=== PATIENT | male | born 1965 | race Caucasian/White ===

== ENCOUNTER 2017-01-25 08:03 | Day surgery (SDC) | payer BC ==
[2017-01-21 15:45] VITALS: BMI 34.7
[~2017-01-25 08:03] MED LIST: LACTATED RINGERS 1,000 ML IV SCH; LIDOCAINE 1% 20 ML VIAL (10MG/ML) FOR IV START INTRADERMA PRN
[2017-01-25 08:51] VITALS: RESP 16; TEMP 98.3
[2017-01-25] MEDS ORDERED: PROPOFOL 10 MG/ML 20 ML VIAL IV ONE (09:36)
[2017-01-25] MEDS ORDERED: LIDOCAINE 1% INJ 10MG/ML (20 ML MDV) ONE (09:36)
--- NOTE | 2017-01-25 09:56 | P.PCN ---
Date of Procedure: 01/25/17 Preoperative Diagnosis: Postoperative Diagnosis: Procedure(s) Performed: BRIEF HISTORY: Patient is a 51-year-old pleasant white male, scheduled for an elective colonoscopy as a part of screening for colorectal neoplasia. PROCEDURE PERFORMED: Colonoscopy with snare polypectomy and biopsy. PREOPERATIVE DIAGNOSIS: Screening for colon cancer. IV sedation per Anesthesia. PROCEDURE: After informed consent was obtained, the patient, was brought into the endoscopy unit. IV sedation was administered by Anesthesia under continuous monitoring. Digital rectal examination was normal. Initially the Olympus CF- 160 flexible video colonoscope was then inserted in the rectum, gradually advanced into the cecum without any difficulty. Careful examination was performed as the scope was gradually being withdrawn. Ileocecal valve and the appendiceal orifice were visualized and appeared normal. Prep was excellent. In the base of the cecum there was a diminutive polyp that was removed by biopsy. In the ascending colon there was a 1 cm polyp removed by snare polypectomy. In the proximal transverse colon there was a 5 mm polyp that was removed by snare polypectomy. Mucosa of the cecum, ascending colon, transverse colon, descending colon, sigmoid colon, and rectum appeared normal. Retroflexion was performed in the rectum and no lesions were seen. The patient tolerated the procedure well. IMPRESSION: Diminutive polyp in the cecum status post removal by biopsy 1 cm ascending colon polyp status post snare polypectomy 5 mm was colon polyp status post snare polypectomy RECOMMENDATIONS: Findings of this examination were discussed with the patient as well as his family. He was advised to follow with the biopsy results. If the biopsy shows a tubular adenoma he can have a repeat colonoscopy in 5 years. Implants: Indications for Procedure: Operative Findings: Description of Procedure:
[2017-01-25 10:19] VITALS: BP 109/72; PULSE 69
== END 2017-01-25 10:48 | disposition home or self-care (01) ==
LOC: ORWHC2ENDO 08:03
PROVIDERS: ATTEND Internal Medicine Gastroenterology
DX: Z12.11 Encounter for screening for malignant neoplasm of colon (principal); D12.3 Benign neoplasm of transverse colon; K63.5 Polyp of colon; I10 Essential (primary) hypertension; Z79.899 Other long term (current) drug therapy; Z88.0 Allergy status to penicillin
CPT/HCPCS: 88305; 45380; 45385; J2001; J2704

== ENCOUNTER → 2017-04-29 | Outpatient (CLI) | payer BC ==
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
== END | disposition home or self-care (01) ==
LOC: RADUSWWP 10:55
PROVIDERS: ATTEND Family Medicine
DX: R16.0 Hepatomegaly, not elsewhere classified (principal); K76.0 Fatty (change of) liver, not elsewhere classified
CPT/HCPCS: 76700

== ENCOUNTER → 2023-01-29 | Outpatient (CLI) | payer BC ==
[2023-01-29 12:14] LABS: HCT 49.5 % (39.0-53.0); HGB 16.9 gm/dL (13.0-17.5); MCH 31.3 pg (25.0-35.0); MCHC 34.1 g/dL (31.0-37.0); MCV 91.9 fL (80.0-100.0); Mean Platelet Volume 9.2; Platelet Count 186 k/uL (150-450); RBC 5.39 m/uL (4.30-5.90); RDW 13.7 % (11.5-15.5); WBC 9.3 k/uL (3.8-10.6)
[2023-01-29 12:52] LABS: ALT 25 U/L (4-49); AST 26 U/L (17-59); African American GFR (CKD) 84 (>60 ml/min/1.73 sqM); Albumin 4.4 g/dL (3.5-5.0); Albumin/Globulin Ratio 1.5; Alkaline Phosphatase 67 U/L (38-126); Amylase 53 U/L (30-110); Anion Gap 6 mmol/L; Blood Urea Nitrogen 10 mg/dL (9-20); C Reactive Protein 1.3 mg/dL (<1.0); Calcium 9.3 mg/dL (8.4-10.2); Carbon Dioxide 28 mmol/L (22-30); Chloride 102 mmol/L (98-107); Glucose 104 mg/dL (74-99); Lipase 73 U/L (23-300); Non-African American GFR(CKD) 73 (>60 ml/min/1.73 sqM); Potassium 4.5 mmol/L (3.5-5.1); Sodium 136 mmol/L (137-145); Total Bilirubin 0.8 mg/dL (0.2-1.3); Total Protein 7.4 g/dL (6.3-8.2)
[2023-01-29 13:03] LABS: Erythrocyte Sedimentation Rate 6 mm/hr (0-15)
--- NOTE | 2023-01-29 13:31 | CT ---
EXAMINATION TYPE: CT abdomen pelvis w con DATE OF EXAM: 01/29/2023 COMPARISON: NONE HISTORY: 57-year-old male R10.32, Left lower quadrant abdominal pain. TECHNIQUE: Contiguous axial scanning of the abdomen and pelvis following administration of 100 ml Iso shaye 300 IV contrast. Delayed images through the kidneys and coronal/sagittal reconstructions perform ed. CT DLP: 2152.5 mGycm Automated exposure control for dose reduction was used. FINDINGS: LUNG BASES: Moderate emphysematous change. Otherwise, no significant abnormality is appreciated. LIVER/GB: Low-attenuation suggesting fatty infiltration. No focal lesion. Portal venous system is pat ent. No biliary ductal dilatation. Gallbladder within normal limits. PANCREAS: No significant abnormality is seen. SPLEEN: No significant abnormality is seen. ADRENALS: No significant abnormality is seen. KIDNEYS: No significant abnormality is seen. BOWEL: Left-sided colonic diverticulosis, greatest in the sigmoid colon. No pericolonic inflammatory change. Oral contrast has progressed into the descending colon. No dilated small bowel, free fluid, o r free air. LYMPH NODES: No significant abnormality is seen. OTHER: No significant abnormality is seen. PELVIS: Mild circumferential bladder wall thickening. No abnormal fluid collection in the pelvis or p elvic lymphadenopathy. Mild degenerative disc disease lower thoracic and upper lumbar spine. Hypertro phic facet arthropathy mid to lower lumbar spine with degenerative grade 1 anterolisthesis L4-L5. BONES: No significant abnormality is seen. IMPRESSION: 1. MILD CIRCUMFERENTIAL BLADDER WALL THICKENING COULD REPRESENT CHRONIC BLADDER WALL HYPERTROPHY VERS US CYSTITIS. CLINICALLY CORRELATE. 2. SIGMOID DIVERTICULOSIS WITHOUT EVIDENCE FOR ACUTE DIVERTICULITIS. 3. HEPATIC STEATOSIS. 4. COPD IN THE VISUALIZED LOWER LUNGS.
== END | disposition home or self-care (01) ==
LOC: RADCTMAIN 10:37
PROVIDERS: ATTEND Physician Assistant
DX: K76.0 Fatty (change of) liver, not elsewhere classified (principal); J44.9 Chronic obstructive pulmonary disease, unspecified; K57.30 Diverticulosis of large intestine without perforation or abscess without bleeding; N32.89 Other specified disorders of bladder
CPT/HCPCS: 80053; 85652; 82150; 83690; 85027; 86140; 74177; 36415; Q9967

== ENCOUNTER 2025-02-06 09:10 | Emergency (ER) | payer OTHER ==
[2025-02-06] MEDS: HYDROcodone/APAP 5-325MG 1 EACH TAB PO STA ×2 (09:30→10:25)
--- NOTE | 2025-02-06 09:59 | XR ---
EXAMINATION TYPE: XR Hip LT and AP Pelvis DATE OF EXAM: 02/06/2025 9:46 AM INDICATION: Patient age:Male; 59 years old; Reason for study: fall, pain; PHH. pain COMPARISON: CT pelvis of 1123 TECHNIQUE: The left hip was examined in the frontal and lateral projections and a AP pelvis. FINDINGS: No evidence of any acute osseous pathology, joint dislocation, or soft tissue swelling. Wel l-corticated calcification adjacent to the left greater trochanter. IMPRESSION: 1. No acute osseous pathology. 2. Left greater trochanteric calcific tendinosis suggested. [facility], , 02/06/2025 9:56 AM
--- NOTE | 2025-02-06 10:00 | XR ---
EXAMINATION TYPE: XR shoulder complete LT, XR elbow limited LT, XR humerus LT DATE OF EXAM: 02/06/2025 9:46 AM INDICATION: Patient age:Male; 59 years old; Reason for study: fall, pain; pain COMPARISON: None TECHNIQUE: The left shoulder was examined in AP, internally rotated and scapular Y projections. The left humerus was examined in frontal and lateral projections. The left elbow was examined in an late ral projections. FINDINGS: No evidence of acute osseous pathology, joint dislocation, or soft tissue swelling. The remaining por tions of the visualized chest are unremarkable. IMPRESSION: No acute osseous pathology. [facility], , 02/06/2025 9:58 AM
--- NOTE | 2025-02-06 10:25 | ED ---
General Adult HPI - General Chief complaint: Extremity Injury, Upper Stated complaint: Fall, left arm injury Time Seen by Provider: 02/06/25 09:18 Source: patient, RN notes reviewed, old records reviewed Mode of arrival: ambulatory Limitations: no limitations - History of Present Illness Initial comments: 59-year-old male presents emergency department after a fall. Patient slipped going down steps and fell down 3 stairs at home this morning a few hours prior to arrival. States he landed on his left buttock and has pain in the left buttock as well as left shoulder. He is able to move the left elbow and hand without issue but primary pain is in the left shoulder. Cannot lift it or use it at his normal baseline. Denies any sensory deficits. Is not on blood thinners. Denies hitting his head or loss consciousness. Has no other acute complaints at this time. Presents for further evaluation. Patient is able to ambulate but cannot move his left shoulder as his normal baseline.Patient did suffer an abrasion to the left elbow. Is up-to-date on tetanus. - Related Data Home Medications Medication Instructions Recorded Confirmed atenoloL 100 mg PO HS 01/21/17 01/21/17 lisinopriL [Zestril] 10 mg PO HS 01/21/17 01/21/17 traZODone HCL 50 mg PO HS 01/21/17 01/21/17 Previous Rx's Medication Instructions Recorded HYDROcodone/APAP 5-325MG [Kinsley 1 tab PO Q6HR PRN 3 Days #12 tab 02/06/25 5-325] Allergies Allergy/AdvReac Type Severity Reaction Status Date / Time ceftriaxone [From Rocephin] Allergy Rash/Hives Verified 02/06/25 09:16 tetracycline Allergy Rash/Hives Verified 02/06/25 09:16 Penicillins AdvReac Rash/Hives Verified 01/25/17 08:46 Review of Systems ROS Statement: Those systems with pertinent positive or pertinent negative responses have been documented in the HPI. Review of Systems: CONST: Denies fever EYES: Denies blurry vision ENT: Denies nasal congestion C/V: Denies Chest pain RESP: Denies shortness of breath GI: Denies abdominal pain : Denies dysuria SKIN: Denies rash. MSK: Endorses left shoulder pain, left buttock pain NEURO: Denies headache ROS Other: All systems not noted in ROS Statement are negative. Past Medical History Past Medical History: Diabetes Mellitus, Hypertension History of Any Multi-Drug Resistant Organisms: None Reported Additional Past Surgical History / Comment(s): rectal fistula repair Additional Past Anesthesia/Blood Transfusion Reaction / Comment(s): states with rectal fistula repair "the muscle relaxant he was given, had opposite effect" States he" tensed up". Occurred in 2007 Smoking Status: Current every day smoker Past Alcohol Use History: Rare Past Drug Use History: None Reported - Past Family History Mother Family Medical History: No Reported History General Exam - General Exam Comments Initial Comments: General: Appears in no acute distress. HEAD: Normal with no signs of head trauma. Negative Michelle sign. Negative raccoon eyes. EYES: PERRLA, EOMI, conjunctiva normal, no discharge. Pupils are 3 mm and equal bilaterally. ENT: Hearing grossly intact, normal oropharynx. RESPIRATORY: Clear breath sounds bilaterally. No wheezes, rales, or rhonchi. C/V: Regular rate and rhythm. S1 and S2 auscultated, no edema, peripheral pulses 2+ and intact throughout ABD: Abd is soft, nontender, nondistended EXT: Decreased range of motion left shoulder secondary to pain. No obvious deformity present. Tender to palpation over the lateral aspect of the left shoulder. No clavicular tenderness to palpation. No midline cervical, thoracic, lumbar spine tenderness to palpation. Pelvis is stable. Able to ambulate without difficulty. SKIN: No rashes or lesions observed on exposed skin. NEURO: Alert and oriented x 4. GCS of 15. No focal neurological deficits. Limitations: no limitations Course Vital Signs 02/06/25 02/06/25 09:13 11:30 Temperature 97.8 F 98.1 F Pulse Rate 55 L 68 Respiratory 20 18 Rate Blood Pressure 159/77 135/78 O2 Sat by Pulse 97 98 Oximetry Medical Decision Making - Medical Decision Making Was pt. sent in by a medical professional or institution (, PA, WINDOWS SYSTEMS ADMINISTRATOR, urgent care, hospital, or group home...) When possible be specific @ -No Did you speak to anyone other than the patient for history (EMS, parent, family, police, friend...)? What history was obtained from this source @ -No Did you review nursing and triage notes (agree or disagree)? Why? @ -I reviewed and agree with nursing and triage notes Were old charts reviewed (outside hosp., previous admission, EMS record, old EKG, old radiological studies, urgent care reports/EKG's, group home records)? Report findings @ -No old charts were reviewed Differential Diagnosis (chest pain, altered mental status, abdominal pain women, abdominal pain men, vaginal bleeding, weakness, fever, dyspnea, syncope, headache, dizziness, GI bleed, back pain, seizure, CVA, palpatations, mental health, musculoskeletal)? @ -Left shoulder sprain, abrasions, left shoulder fracture, left shoulder dislocation. This list is not all-inclusive. EKG interpreted by me (3pts min.). @ -None none X-rays interpreted by me (1pt min.). @ -X-rays of the left shoulder, elbow, humerus, pelvis and hip are negative for any obvious acute traumatic injury or process. CT interpreted by me (1pt min.). @ -CT shows no obvious acute traumatic injury U/S interpreted by me (1pt. min.). @ -None done What testing was considered but not performed or refused? (CT, X-rays, U/S, la bs)? Why? @ -None What meds were considered but not given or refused? Why? @ -None Did you discuss the management of the patient with other professionals (professionals i.e. , PA, WINDOWS SYSTEMS ADMINISTRATOR, lab, RT, psych nurse, elementary school social worker, mail processing clerk, teacher, classifications officer cc/cm, trimming caser)? Give summary @ -No Was smoking cessation discussed for >3mins.? @ -No Was critical care preformed (if so, how long)? @ -No Were there social determinants of health that impacted care today? How? (Homelessness, low income, unemployed, alcoholism, drug addiction, transportation, low edu. Level, literacy, decrease access to med. care, detention, rehab)? @ -No Was there de-escalation of care discussed even if they declined (Discuss DNR or withdrawal of care, Hospice)? DNR status @ -No What co-morbidities impacted this encounter? (DM, HTN, Smoking, COPD, CAD, Cancer, CVA, ARF, Chemo, Hep., AIDS, mental health diagnosis, sleep apnea, morbid obesity)? @ -None Was patient admitted / discharged? Hospital course, mention meds given and route, prescriptions, significant lab abnormalities, going to OR and other pertinent info. @ -Patient presents with left shoulder pain after a fall. Does not meet criteria for trauma activation. Does not meet criteria for code coag. Vital signs are within acceptable limits. Primary complaint is left shoulder pain as he has reduced range of motion from the fall. Has an abrasion over the left elbow but is up-to-date on tetanus. Patient will be administered Kinsley we will obtain x-rays of the left shoulder, humerus, elbow. I also recommended a pelvic x-ray and left hip x-ray considering the left buttock pain. Patient was in agreement this plan. Vitals are within acceptable limits. CT imaging the head not indicated as he is not on blood thinners, did not lose consciousness, did not hit his head. Based on [place] head CT rules, not indicated. X-rays all returned negative for any obvious acute traumatic injury. I updated the patient. He still is having some issues with movement of the left shoulder which is significantly below baseline. Discussed with the patient and therefore we will obtain a CT of the left shoulder. CT shows no obvious acute traumatic injury. I updated the patient. At this time, he will be placed in a sling and given follow-up information for orthopedic surgery. Recommend follow-up early next week if symptoms or not improved. Diagnosis at this time is left shoulder sprain. He was in agreement this plan. He was given a work note as well as analgesia medications for home. I will provide the patient with a prescription for Kinsley 5. I instructed the patient to follow up with their PCP in the next 1-3 days. I provided contact information for follow up with orthopedic surgery. I explained that the patient should return to the emergency department if they experience any worsening symptoms. Strict return precautions were discussed with the patient. The patient expressed understanding of these instructions. I answered all questions that the patient had. The patient was discharged home in good condition with their prescriptions and follow up information. Undiagnosed new problem with uncertain prognosis? @ -No Drug Therapy requiring intensive monitoring for toxicity (Heparin, Nitro, Insulin, Cardizem)? @ -No Were any procedures done? @ -No Diagnosis/symptom? @ -Fall, abrasion, left shoulder sprain Acute, or Chronic, or Acute on Chronic? @ -Acute Uncomplicated (without systemic symptoms) or Complicated (systemic symptoms)? @ -Uncomplicated Side effects of treatment? @ -None Exacerbation, Progression, or Severe Exacerbation] @ -No Poses a threat to life or bodily function? @ -Likely at this time Disposition Clinical Impression: Sprain of left shoulder, Fall, Abrasion Disposition: HOME SELF-CARE Condition: Good Instructions (If sedation given, give patient instructions): Shoulder Sprain (ED) Prescriptions: HYDROcodone/APAP 5-325MG [Kinsley 5-325] 1 tab PO Q6HR PRN 3 Days #12 tab PRN Reason: Pain Is patient prescribed a controlled substance at d/c from ED?: Yes When asked, does pt state using other controlled substances?: No If prescribed controlled substance>3 days was MAPS reviewed?: Prescribed <3 Days If opioid is for acute pain is fill amount 7 days or less?: Yes If Rx opioid, was Start Talking consent form obtained?: Yes Referrals: Stew Lala MD [Primary Care Provider] - 1-2 days Wilian Cohn MD [STAFF PHYSICIAN] - 1-2 days Time of Disposition: 11:08
--- NOTE | 2025-02-06 10:51 | CT ---
EXAMINATION TYPE: CT shoulder LT wo con CT DLP: 656.7 mGycm, Automated exposure control for dose reduction was used. DATE OF EXAM: 02/06/2025 10:43 AM COMPARISON: Extremity radiograph same day. CLINICAL INDICATION:Male, 59 years old with history of intractable pain s/p fall; PHH, lt shoulder pa in since fall TECHNIQUE: Axial images were obtained of the left shoulder without the use of IV contrast. Additiona l coronal and sagittal reformatted images and soft tissue and bone window were obtained for review. 3 -D reconstruction was created on a separate workstation. FINDINGS: There is no evidence of fracture, subluxation, or dislocation. No significant soft tissue swelling or joint effusion is identified. Mild AC joint arthropathy with capsular hypertrophy and scl erosis. No focal muscular atrophy or edema is identified. No radiopaque foreign body identified. Mode rate centrilobular and paraseptal emphysematous changes visualized. IMPRESSION: 1. No acute fracture or dislocation. 2. Mild AC joint arthropathy. 3. Moderate emphysematous changes. [facility], , 02/06/2025 10:49 AM
[2025-02-06] MEDS: ACET/COD 300 MG/30 MG STARTER PACK TAB BTL PO STA (11:26)
[2025-02-06 11:32] VITALS: BP 135/78; PULSE 68; RESP 18; TEMP 98.1
== END 2025-02-06 11:33 | disposition home or self-care (01) ==
LOC: EC 09:10
DX: S43.402A Unspecified sprain of left shoulder joint, initial encounter (principal); F17.200 Nicotine dependence, unspecified, uncomplicated; Z88.0 Allergy status to penicillin; Z88.1 Allergy status to other antibiotic agents; Z88.8 Allergy status to other drugs, medicaments and biological substances; W10.9XXA Fall (on) (from) unspecified stairs and steps, initial encounter; Y92.009 Unspecified place in unspecified non-institutional (private) residence as the place of occurrence of the external cause
CPT/HCPCS: 73502; 99284

== ENCOUNTER → 2025-02-19 | Outpatient (CLI) | payer OTHER ==
--- NOTE | 2025-02-19 15:23 | CTL ---
EXAMINATION TYPE: CT Low Dose Lung DATE OF EXAM: 02/19/2025 2:41 PM COMPARISON: None. SCREENING VISIT: Initial CT DIAGNOSTIC QUALITY: Limited, but interpretable CLINICAL INDICATION: Male, 59 years old with history of Z12.2, F17.210 NICOTINE DEPENDENCE, CIGARETTE S, UN, pt smokes 1 pk/day x 40 years, hx of HTN, Lung cancer screening, History of tobacco use. TECHNIQUE: Low dose computed tomography scan was performed through the chest at 1 mm thick sections a nd reconstructed images in the coronal plane at 1 mm thick sections. Contrast used: mL of , (none if empty) Oral contrast used: (none if empty) CT DLP: 109 mGycm, Automated exposure control for dose reduction was used. CT CTDI: 2.83 mGy, Automated exposure control for dose reduction was used. FINDINGS: LUNG NODULES: Present, detailed below: 1. There is a 0.5 cm peripheral right apical nodule. Series 4 image 61. LUNGS: COPD: Severity: Mild to moderate Fibrosis: Severity: None Lymph nodes: None Other findings: None RIGHT PLEURAL SPACE: Effusion: None Calcification: None Thickening: None Pneumothorax: None LEFT PLEURAL SPACE: Effusion: None Calcification: None Thickening: None Pneumothorax: None HEART: Other: Ascending thoracic aorta at the level the main pulmonary artery measures 3.7 cm. The main pul monary artery at the bifurcation measures 2.7 cm. Heart Size: Normal Coronary calcification: Mild coronary artery calcifications present. Pericardial effusion: None OTHER FINDINGS: Upper abdomen: Normal Bony thorax: Normal Supraclavicular region: Normal IMPRESSION: Benign appearing findings FOLLOW UP CT CHEST RECOMMENDATION: Follow-up low-dose CT chest one year CT LUNG RAD: Lung-Rad 2 Benign Appearance or Behavior [facility], Workstation: [facility], 02/19/2025 3:21 PM
== END | disposition home or self-care (01) ==
LOC: RADCTMAIN 14:08
PROVIDERS: ATTEND Family Medicine
DX: Z12.2 Encounter for screening for malignant neoplasm of respiratory organs (principal); F17.210 Nicotine dependence, cigarettes, uncomplicated
CPT/HCPCS: 71271